=== PATIENT | male | born 1980 | race Two or more races ===

== ENCOUNTER 2018-10-04 21:56 | Emergency (ER) | payer SELFPAY ==
[~2018-10-04] VITALS: Ht 167.6 cm; Wt 77.1 kg
[2018-10-04 22:13] VITALS: BP 116/72
--- NOTE | 2018-10-04 23:11 | PHYS DOC ---
Past Medical History Past Medical History: No Pertinent History Past Surgical History: Appendectomy Alcohol Use: None Drug Use: None Adult General Chief Complaint Chief Complaint: ANKLE PROBLEM HPI HPI Patient is a 38 year old male who presents with left ankle pain and swelling that started around 8:30 PM. Pain is to the lateral anterior portion of the ankle. The patient was playing soccer and turned his ankle. The patient took 600 mg ibuprofen before arrival and states that is not really helped. He rates his pain as 9 out of 10 sharp and throbbing. Review of Systems Review of Systems Constitutional: Denies fever or chills [] Eyes: Denies change in visual acuity, redness, or eye pain [] HENT: Denies nasal congestion or sore throat [] Respiratory: Denies cough or shortness of breath [] Cardiovascular: No additional information not addressed in HPI [] GI: Denies abdominal pain, nausea, vomiting, bloody stools or diarrhea [] : Denies dysuria or hematuria [] Musculoskeletal: Denies back pain or joint pain with exception of left ankle. Integument: Denies rash or skin lesions [] Neurologic: Denies headache, focal weakness or sensory changes [] Endocrine: Denies polyuria or polydipsia [] Complete systems were reviewed and found to be within normal limits, except as documented in this note. Current Medications Current Medications Current Medications Medications (Trade) Dose Ordered Sig/Jodi Start Time Stop Time Status Last Admin Dose Admin Acetaminophen/ Hydrocodone Bitart (Lortab 5/325) 1 tab 1X ONCE 10/04/18 23:15 10/04/18 23:16 DC 10/04/18 23:06 1 TAB Allergies Allergies Allergies Coded Allergies Type Severity Reaction Last Updated Verified No Known Drug Allergies 10/04/18 No Physical Exam Physical Exam Constitutional: Well developed, well nourished, no acute distress, non-toxic appearance. [] HENT: Normocephalic, atraumatic, bilateral external ears normal, oropharynx moist, no oral exudates, nose normal. [] Eyes: PERRLA, EOMI, conjunctiva normal, no discharge. [] Neck: Normal range of motion, no tenderness, supple, no stridor. [] Cardiovascular:Heart rate regular rhythm, no murmur [] Lungs & Thorax: Bilateral breath sounds clear to auscultation [] Abdomen: Bowel sounds normal, soft, no tenderness, no masses, no pulsatile masses. [] Skin: Warm, dry, no erythema, no rash. [] Back: No tenderness, no CVA tenderness. [] Extremities: Tenderness to lateral anterior aspect of ankle, no cyanosis, no clubbing, ROM reduced, edema to Lateral ankle.. [] Neurologic: Alert and oriented X 3, normal motor function, normal sensory function, no focal deficits noted. [] Psychologic: Affect normal, judgement normal, mood normal. [] Current Patient Data Vital Signs Vital Signs Date Time Temp Pulse Resp B/P (MAP) Pulse Ox O2 Delivery O2 Flow Rate FiO2 10/04/18 23:06 15 96 Room Air 10/04/18 22:13 97.6 85 116/72 (87) 97.6 EKG EKG [] Radiology/Procedures Radiology/Procedures []PATIENT: LEATHA MATUTE IACCOUNT: [id number]#: [id number] : 1980 LOCATION: ER AGE: 38 SEX: M EXAM STATUS: REG ER ORD. PHYSICIAN: BAKARI OLIVER APRN REASON: pain PROCEDURE: ANKLE LEFT 3V Left ankle 3 views. HISTORY: Pain 3 views were taken of the left ankle. There is significant soft tissue swelling especially laterally. There is no acute fracture or osseous abnormality. IMPRESSION: 1. Soft tissue swelling left ankle. 2. No fracture or acute osseous abnormality. Electronically signed by: Piter Gomes MD (10/04/2018 11:06 PM) [facility] Course & Med Decision Making Course & Med Decision Making Pertinent Labs and Imaging studies reviewed. (See chart for details) Will get x-ray and give pain medication. X-ray is negative. Will put in air cast and have use crutches (Patient already has crutches). Dragon Disclaimer Dragon Disclaimer This electronic medical record was generated, in whole or in part, using a voice recognition dictation system. Departure Departure Impression: Primary Impression: Ankle pain Disposition: 01 HOME, SELF-CARE Condition: STABLE Referrals: UNKNOWN PCP NAME (PCP) Patient Instructions: Ankle Pain, Elastic Bandage and RICE, RICE - Routine Care for Injuries Additional Instructions: Thank you for visiting [facility]. We appreciate you trusting us with your care. If any additional problems come up don't hesitate to return to visit us. Please follow up with your primary care provider so they can plan additional care if needed and know about the problem that you had. If symptoms worsen come back to the Emergency Department. Any concerning symptoms that start such as chest pain, shortness of Air, weakness or numbness on one side of the body, running high fevers or any other concerning symptoms return to the ER. Problem Qualifiers Primary Impression: Ankle pain Chronicity: acute Laterality: left Qualified Codes: M25.572 - Pain in left ankle and joints of left foot BAKARI OLIVER APRN Oct 04, 2018 23:11
[2018-10-04] MEDS ORDERED: HYDROcodone/APAP 5/325MG 1 TAB TABLET PO ONE (23:15)
== END 2018-10-04 23:48 | disposition home or self-care (01) ==
LOC: ER 21:56
DX: M25.572 Pain in left ankle and joints of left foot (principal); Z90.89 Acquired absence of other organs; X50.1XXA Overexertion from prolonged static or awkward postures, initial encounter; Y93.66 Activity, soccer; Y92.89 Other specified places as the place of occurrence of the external cause; Y99.8 Other external cause status
CPT/HCPCS: 73610; 99284; L4350